=== PATIENT | male | born 1975 | race Caucasian/White ===

== ENCOUNTER 2017-02-13 16:55 | Emergency (ER) | payer BC ==
[2017-02-13 18:10] VITALS: BP 115/66
--- NOTE | 2017-02-13 19:09 | UC ---
Ear Complaint HPI - HPI Summary HPI Summary: per woodworking bench carpenter "ONSET THIS MORNING WITH RIGHT EYE REDNESS AND DRAINAGE. PT NOT AWARE OF ANY INJURY OR FOREIGN BODY IN EYE. ALSO BOTH EARS HAVE BEEN DRAINGING AND SKIN IN EAR HAS BECOME CRUSTY ON AND OF FOR A FEW MONTHS. " Had URI this week that is resolving. rt eye has green d/c adn crusting. denies trauma and FB. no contacts PCP told him ears had eczema and to apply HC which he has done without resolution. Not tender or painful. no swelling. gets actual discharge from his ear. no fevers. - History of Current Complaint Chief Complaint: UCGeneralIllness Stated Complaint: RIGHT EYE/EARS Time Seen by Provider: 02/13/17 18:59 - Allergies/Home Medications Allergies/Adverse Reactions: Allergies Allergy/AdvReac Type Severity Reaction Status Date / Time dye Allergy Unknown Unknown Uncoded 06/28/15 13:52 Reaction Details PMH/Surg Hx/FS Hx/Imm Hx Previously Healthy: Yes Other History Of: Negative For: HIV, Hepatitis B, Hepatitis C - Surgical History Surgical History: Yes Surgery Procedure, Year, and Place: vasectomy. adenoidectomy. tubes in ears - Family History Known Family History: Positive: Diabetes - Social History Alcohol Use: Daily Substance Use Type: None Smoking Status (MU): Former Smoker When Did the Patient Quit Smoking/Using Tobacco: 12 YEARS AGO Review of Systems Constitutional: Negative Skin: Negative Eyes: Drainage, Eye Redness ENT: Other - ear discharge b/l Respiratory: Negative Cardiovascular: Negative Gastrointestinal: Negative Genitourinary: Negative Motor: Negative Neurovascular: Negative Musculoskeletal: Negative Neurological: Negative Psychological: Negative Is Patient Immunocompromised?: No All Other Systems Reviewed And Are Negative: Yes Physical Exam Triage Information Reviewed: Yes Appearance: Well-Appearing, No Pain Distress, Well-Nourished Vital Signs: Initial Vital Signs Temp 98.1 F 02/13/17 18:04 Pulse 53 02/13/17 18:04 Resp 16 02/13/17 18:04 BP 115/66 02/13/17 18:04 Pulse Ox 99 02/13/17 18:04 Vital Signs Reviewed: Yes Eyes: Positive: Conjunctiva Inflamed - right eye with mild swelling adn d/c. crusting on eyelids. EOMI, PERRL. no trauma. no FB ENT: Positive: Hearing grossly normal, Pharynx normal, TMs normal, Other: - b/l ear canals wo swelling. flaky skin on canals and over TMs slightly. external ears without swelling or tenderness with manipulation. Dental Exam: Normal Neck exam: Normal Neck: Positive: Supple, Nontender, No Lymphadenopathy Respiratory Exam: Normal Respiratory: Positive: Lungs clear, Normal breath sounds, No respiratory distress, No accessory muscle use Cardiovascular Exam: Normal Cardiovascular: Positive: RRR, No Murmur, Pulses Normal Abdomen Description: Positive: Nontender, Soft Musculoskeletal Exam: Normal Neurological Exam: Normal Psychological Exam: Normal Skin Exam: Normal Ear Complaint Course/Dx - Differential Dx/Diagnosis Differential Diagnosis/HQI/PQRI: Cerumen Impaction, Otitis Externa, Otitis Media , URI Provider Diagnoses: right eye conjunctivitis, b/l canal dermatitis Discharge - Discharge Plan Condition: Stable Disposition: HOME Patient Education Materials: Conjunctivitis (ED) Referrals: Tysno Berg DO [Primary Care Provider] - 3 Days Additional Instructions: You can use OTC refresh brand eye drops in your eye tonight until the pharmacy opens. cool compresses may help as well. If you ear symptoms do not improve with these drops, you should consider seeing an ENT.
== END 2017-02-13 19:27 | disposition home or self-care (01) ==
LOC: UCCORT 16:55
DX: H10.9 Unspecified conjunctivitis (principal); L30.9 Dermatitis, unspecified; Z87.891 Personal history of nicotine dependence
CPT/HCPCS: 99211; G0463